=== PATIENT | male | born 2000 | race Caucasian/White ===

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

== ENCOUNTER 2019-02-02 22:32 | Emergency (ER) | payer OTHER ==
[2019-02-02 22:38] VITALS: BP 125/68; PULSE 84; TEMP 97.5; BMI 25.1
--- NOTE | 2019-02-02 22:38 | PDOC ---
History of Present Illness - General Chief Complaint: Cold Symptoms Stated Complaint: URI History Source: Patient, Parent(s) Exam Limitations: No Limitations - History of Present Illness Timing/Duration: 1 week Severity: mild Associated Symptoms: reports: cough, fever/chills Past History - Travel Traveled outside of the country in the last 30 days: No Close contact w/someone who was outside of country & ill: No - Past Medical History Allergies/Adverse Reactions: Allergies Allergy/AdvReac Type Severity Reaction Status Date / Time No Known Allergies Allergy Verified 05/09/18 00:33 Home Medications: Ambulatory Orders Azithromycin [Zithromax -] 250 mg PO DAILY #4 tab 02/02/19 COPD: No Disorders: Yes (PHIMOSIS) - Immunization History Immunization Up to Date: Yes - Suicide/Smoking/Psychosocial Hx Smoking History: Never smoked Have you smoked in the past 12 months: No Hx Alcohol Use: No Drug/Substance Use Hx: No Substance Use Type: None Review of Systems - Review of Systems Constitutional: Yes: Chills, Fever. No: Symptoms Reported, See HPI, Diaphoresis , Loss of Appetite, Malaise, Night Sweats, Weakness, Weight Stable, Unintentional Wgt. Loss, Unexplained wgt Loss, Other HEENTM: Yes: Nose Pain, Nose Congestion. No: Symptoms Reported, See HPI, Eye Pain, Blurred Vision, Tearing, Recent change in vision, Double Vision, Cataracts , Ear Pain, Ocular Prothesis, Ear Discharge, Tinnitus, Nose Bleeding, Hearing Loss, Throat Pain, Throat Swelling, Mouth Pain, Dental Problems, Difficulty Swallowing, Mouth Swelling, Other Respiratory: Yes: Cough. No: Symptoms reported, See HPI, Orthopnea, Shortness of Breath, SOB with Exertion, SOB at Rest, Stridor, Wheezing, Productive cough, Hemoptysis, Other Cardiac (ROS): No: Symptoms Reported, See HPI, Chest Pain, Edema, Irregular Heart Rate, Lightheadedness, Palpitations, Syncope, Chest Tightness, Other ABD/GI: No: Symptoms Reported, See HPI, Abdominal Distended, Abd. Pain w/ defecation, Blood Streaked Bowels, Constipated, Diarrhea, Difficulty Swallowing , Nausea, Poor Appetite, Poor Fluid Intake, Rectal Bleeding, Vomiting, Indigestion, Abdominal cramping, Tarry Stools, Other : No: Symptoms Reported, See HPI, Burning, Dysuria, Discharge, Frequency, Flank Pain, Hematuria, Incontinence, Pain, Urgency, Testicular Mass, Testicular Swelling, Lesions, Testicular Pain, Other Musculoskeletal: No: Symptoms Reported, See HPI, Back Pain, Gout, Joint Pain, Joint Swelling, Muscle Pain, Muscle Weakness, Neck Pain, Joint Stiffness, Other Integumentary: No: Symptoms Reported, See HPI, Bruising, Change in Color, Change in Hair/Nails, Dryness, Erythema, Flushing, Lesions, Lumps, Pallor, Pruritus, Rash, Sweating, Other Neurological: No: Symptoms reported, See HPI, Headache, Numbness, Paresthesia, Pre-Existing Deficit, Seizure, Tingling, Tremors, Weakness, Unsteady Gait, Ataxia, Dizziness, Other Psychiatric: No: Anxiety, Depression, Frequent Crying, Stressors, Sleep Pattern Change, Emotional Problems, Mood Swings, Change in Appetite, Other *Physical Exam - Physical Exam General Appearance: Yes: Nourished, Appropriately Dressed. No: Apparent Distress HEENT: positive: EOMI, NISREEN, Normal ENT Inspection, Normal Voice, Symmetrical, TMs Normal, Pharynx Normal, Nasal Congestion, Rhinorrhea Neck: positive: Trachea midline, Normal Thyroid, Supple. negative: Tender, Rigid Respiratory/Chest: positive: Lungs Clear, Normal Breath Sounds. negative: Respiratory Distress, Accessory Muscle Use Cardiovascular: positive: Regular Rhythm, Regular Rate, S1, S2. negative: Edema , JVD, Murmur Gastrointestinal/Abdominal: positive: Normal Bowel Sounds, Flat, Soft. negative : Tender Musculoskeletal: positive: Normal Inspection. negative: CVA Tenderness Extremity: positive: Normal Capillary Refill, Normal Inspection, Normal Range of Motion Integumentary: positive: Normal Color, Dry, Warm, Ecchymosis Neurologic: positive: specialty development consultant II-XII NML intact, Alert, Normal Mood/Affect, Normal Response, Motor Strength /5 Medical Decision Making - Medical Decision Making 02/02/19 23:02 Pt will be treated with a zpak, as he has been ill for a week and had fevers 2 days ago. Feverish today, but didn't take temp. No fever in the ER, but pt states that he is coughing green and nasal drainage is white. Slight sinus tenderness. *DC/Admit/Observation/Transfer Diagnosis at time of Disposition: Sinusitis - Discharge Dispostion Disposition: HOME Condition at time of disposition: Stable Decision to Admit order: No - Prescriptions Prescriptions: Azithromycin [Zithromax -] 250 mg PO DAILY #4 tab - Referrals - Patient Instructions Printed Discharge Instructions: DI for Sinusitis - Post Discharge Activity Forms/Work/School Notes: Back to School
[2019-02-02] MEDS ORDERED: AZITHROMYCIN 500 MG TABLET PO ONE (22:44)
[2019-02-02] MEDS ORDERED: AZITHROMYCIN 250 MG TABLET ONE (22:45)
== END 2019-02-02 23:10 | disposition home or self-care (01) ==
LOC: FER 22:32
DX: J32.9 Chronic sinusitis, unspecified (principal)
CPT/HCPCS: 99282-25

== ENCOUNTER 2022-10-07 23:28 | Emergency (ER) | payer OTHER ==
[2022-10-07] MEDS ORDERED: CEPHALEXIN MONOHYDRATE 500 MG CAPSULE (UD) PO ONE (23:58)
[2022-10-08] MEDS ORDERED: CEPHALEXIN MONOHYDRATE 500 MG CAPSULE (UD) ONE (00:05)
[2022-10-08 00:18] VITALS: BP 119/69; PULSE 87; RESP 18; TEMP 97.9; BMI 22.5
== END 2022-10-08 00:19 | disposition home or self-care (01) ==
LOC: FER 23:28
DX: L25.9 Unspecified contact dermatitis, unspecified cause (principal)
CPT/HCPCS: 99283-25